=== PATIENT | male | born 1960 | race Caucasian/White ===

== ENCOUNTER 2017-04-17 16:38 | Emergency (ER) | payer OTHER ==
[~2017-04-17] VITALS: Ht 185.4 cm; Wt 127.0 kg
[2017-04-17] MEDS ORDERED: PREVACID15 MG PO (16:45)
[2017-04-17] MEDS ORDERED: COMBIVENT RESPIM4 GM INH (16:46)
[2017-04-17] MEDS ORDERED: MAVIK (16:46)
[2017-04-17] MEDS ORDERED: ADVAIR HFA 230M12 GM INH (16:46)
[2017-04-17 17:55] VITALS: BP 135/80
== END 2017-04-17 17:56 | disposition home or self-care (01) ==
LOC: M.ERS 16:38
DX: Z71.1 Person with feared health complaint in whom no diagnosis is made (principal); J45.909 Unspecified asthma, uncomplicated; I10 Essential (primary) hypertension; K21.9 Gastro-esophageal reflux disease without esophagitis